=== PATIENT | female | born 1950 | race Hispanic/Latino ===

== ENCOUNTER 2020-08-02 12:43 | Emergency (ER) | payer MEDICARE ==
[2020-08-02] MEDS ORDERED: ALBUTEROL INHALER 90MCG/INH IH ONE (13:03)
[2020-08-02] MEDS ORDERED: ACETAMINOPHEN WITH CODEINE 1 TAB TAB ONE (13:03)
[2020-08-02] MEDS ORDERED: AZITHROMYCIN 250 MG TABLET PO ONE (13:03)
[2020-08-02] MEDS ORDERED: CEFTRIAXONE 1G VIAL ONE (13:03)
[2020-08-02 13:29] LABS: ABG BASE EXCESS -1.7 mmol/L (-2.0-3.0); ABG OXYGEN SATURATION 95.7 % (95.0-99.0); ABG PCO2 27 mmHg (32-45)
[2020-08-02 13:41] LABS: EOSINOPHILS % (AUTO) 0.6 % (0.0-8.0); HEMATOCRIT 41.6 % (36-48); LYMPHOCYTES % (AUTO) 27.3 % (21.0-51.0); MEAN CORPUSCULAR HEMOGLOBIN 29.6 pg (27.0-33.0); MEAN CORPUSCULAR HGB CONC 34.1 g/dL (32.0-36.0); MEAN CORPUSCULAR VOLUME 86.7 fL (79-99); MONOCYTES % (AUTO) 5.7 % (3.0-13.0); NEUTROPHILS % (AUTO) 65.8 % (40.0-77.0); PLATELET COUNT (AUTO) 160 K/uL (130-400); RED CELL DISTRIBUTION WIDTH 14.2 % (11.0-15.5); WHITE BLOOD COUNT (AUTO) 4.9 K/uL (4.8-10.8)
[2020-08-02 13:52] LABS: CREATININE 1.1 mg/dL (0.5-1.5); INR 1.19 (0.85-1.15); POTASSIUM 4.2 mmol/L (3.5-5.1); PROTHROMBIN TIME 12.5 SEC (9.6-11.6)
[2020-08-02 13:56] LABS: ALBUMIN 4.1 g/dL (3.5-5.0); BILIRUBIN,TOTAL 0.8 mg/dL (0.2-1.0); TOTAL PROTEIN, SERUM 8.6 g/dL (6.0-8.3)
[2020-08-02 14:17] LABS: B-TYPE NATRIURETIC PEPTIDE 83 pg/mL (0-100)
== END 2020-08-02 15:10 | disposition home or self-care (01) ==
LOC: EDH 12:43
DX: U07.1 COVID-19 (principal); I10 Essential (primary) hypertension; Z95.0 Presence of cardiac pacemaker
CPT/HCPCS: 36415; 36600; 71045; 80053; 82550; 82803; 83605; 83880; 84145; 84484; 85025; 85610; 85730; 87040 ×2; 87426; 93005; 96365; 99285; J0696

== ENCOUNTER 2020-08-09 10:14 | Inpatient (IN) | payer MEDICARE ==
[~2020-08-09] VITALS: Ht 157.5 cm; Wt 91.2 kg
[2020-08-09 11:28] LABS: BASOPHILS % (AUTO) 0.7 % (0.0-5.0); EOSINOPHILS % (AUTO) 2.1 % (0.0-8.0); HEMATOCRIT 40.7 % (36-48); LYMPHOCYTES % (AUTO) 24.1 % (21.0-51.0); MEAN CORPUSCULAR HGB CONC 34.4 g/dL (32.0-36.0); MEAN CORPUSCULAR VOLUME 87.3 fL (79-99); NEUTROPHILS % (AUTO) 59.4 % (40.0-77.0); PLATELET COUNT (AUTO) 290 K/uL (130-400); RED BLOOD CELL COUNT(AUTO) 4.66 MIL/uL (4.00-5.50); WHITE BLOOD COUNT (AUTO) 5.6 K/uL (4.8-10.8)
[2020-08-09 11:42] LABS: INR 1.21 (0.85-1.15)
[2020-08-09 11:43] LABS: PARTIAL THROMBOPLASTIN TIME 24.2 SEC (26.3-35.5)
[2020-08-09 12:06] LABS: B-TYPE NATRIURETIC PEPTIDE 88 pg/mL (0-100)
[2020-08-09 13:52] LABS: POTASSIUM 3.9 mmol/L (3.5-5.1)
[2020-08-09 13:56] LABS: ALBUMIN 3.4 g/dL (3.5-5.0); BILIRUBIN,TOTAL 0.7 mg/dL (0.2-1.0); TOTAL PROTEIN, SERUM 7.7 g/dL (6.0-8.3)
[2020-08-09] MEDS ORDERED: GLUCAGON 1MG KIT 1 MG ML IM PRN (15:45)
[2020-08-09] MEDS ORDERED: DEXTROSE 50%-WATER 50 ML DISP.SYRIN IV PRN (15:45)
[2020-08-09] MEDS ORDERED: WARFARIN SODIUM 10 MG TABLET PO SCH (16:00)
[2020-08-09] MEDS: INSULIN R PO SS1 SQ SCH ×2 (16:30→21:00)
[2020-08-10] MEDS: INSULIN R PO SS1 SQ SCH ×4 (07:30→21:00)
[2020-08-10 08:02] LABS: BASOPHILS % (AUTO) 0.5 % (0.0-5.0); EOSINOPHILS % (AUTO) 2.7 % (0.0-8.0); HEMATOCRIT 38.2 % (36-48); LYMPHOCYTES % (AUTO) 27.7 % (21.0-51.0); MEAN CORPUSCULAR HEMOGLOBIN 29.6 pg (27.0-33.0); MEAN CORPUSCULAR HGB CONC 33.5 g/dL (32.0-36.0); MEAN CORPUSCULAR VOLUME 88.4 fL (79-99); MONOCYTES % (AUTO) 8.3 % (3.0-13.0); NEUTROPHILS % (AUTO) 54.8 % (40.0-77.0); PLATELET COUNT (AUTO) 295 K/uL (130-400); RED BLOOD CELL COUNT(AUTO) 4.32 MIL/uL (4.00-5.50); RED CELL DISTRIBUTION WIDTH 13.7 % (11.0-15.5); WHITE BLOOD COUNT (AUTO) 5.5 K/uL (4.8-10.8)
[2020-08-10 08:16] LABS: INR 1.27 (0.85-1.15); PROTHROMBIN TIME 13.5 SEC (9.6-11.6)
[2020-08-10 08:18] LABS: PARTIAL THROMBOPLASTIN TIME 27.9 SEC (26.3-35.5)
[2020-08-10 08:40] LABS: CREATININE 1.1 mg/dL (0.5-1.5); POTASSIUM 4.4 mmol/L (3.5-5.1)
[2020-08-10] MEDS ORDERED: WARFARIN SODIUM 10 MG TABLET PO SCH (12:30)
[2020-08-10] MEDS: ENOXAPARIN SODIUM 100 MG/1 ML SQ SCH ×2 (13:17→21:00)
[2020-08-10] MEDS ORDERED: ENOXAPARIN SODIUM 100 MG/1 ML SQ ONE (20:29)
[2020-08-11 04:32] LABS: HEMATOCRIT 36.4 % (36-48); MEAN CORPUSCULAR HEMOGLOBIN 29.5 pg (27.0-33.0); MEAN CORPUSCULAR HGB CONC 33.5 g/dL (32.0-36.0); MEAN CORPUSCULAR VOLUME 87.9 fL (79-99); PLATELET COUNT (AUTO) 283 K/uL (130-400); RED BLOOD CELL COUNT(AUTO) 4.14 MIL/uL (4.00-5.50); RED CELL DISTRIBUTION WIDTH 13.7 % (11.0-15.5); WHITE BLOOD COUNT (AUTO) 6.1 K/uL (4.8-10.8)
[2020-08-11 04:37] LABS: CREATININE 1.1 mg/dL (0.5-1.5); POTASSIUM 3.9 mmol/L (3.5-5.1)
[2020-08-11 04:52] LABS: INR 1.87 (0.85-1.15); PROTHROMBIN TIME 19.3 SEC (9.6-11.6)
[2020-08-11 04:53] LABS: PARTIAL THROMBOPLASTIN TIME 36.5 SEC (26.3-35.5)
[2020-08-11 05:04] LABS: BAND NEUTROPHILS % (MANUAL) 5 % (0-2); EOSINOPHILS % (MANUAL) 2 % (1-6); LYMPHOCYTES % (MANUAL) 33 % (22-44); MAN.DIFF COMMENT-IMPRESSION MANUAL DIFFERENTIAL; MONOCYTES % (MANUAL) 10 % (2-9); PLATELET MORPHOLOGY COMMENT ADEQUATE; REACTIVE LYMPHOCYTES 3 % (0-0); SEGMENTED NEUTROPHILS % 47 % (40-70)
[2020-08-11] MEDS: INSULIN R PO SS1 SQ SCH ×4 (07:30→21:00)
[2020-08-11] MEDS: ENOXAPARIN SODIUM 100 MG/1 ML SQ SCH ×2 (09:00→21:47)
[2020-08-11] MEDS ORDERED: ENOXAPARIN SODIUM 40 MG/0.4 ML SYRINGE SQ ONE (11:33)
[2020-08-11] MEDS ORDERED: WARFARIN SODIUM 10 MG TABLET PO SCH ×2 (16:00)
[2020-08-11 20:20] VITALS: BP 157/89
[2020-08-12 00:30] VITALS: BP 149/81
[2020-08-12] MEDS: INSULIN R PO SS1 SQ SCH ×2 (05:58→11:30)
[2020-08-12 05:59] VITALS: BP 151/74
[2020-08-12 06:02] LABS: BASOPHILS % (AUTO) 0.6 % (0.0-5.0); EOSINOPHILS % (AUTO) 2.9 % (0.0-8.0); HEMATOCRIT 38.7 % (36-48); LYMPHOCYTES % (AUTO) 31.4 % (21.0-51.0); MEAN CORPUSCULAR HEMOGLOBIN 29.2 pg (27.0-33.0); MEAN CORPUSCULAR HGB CONC 33.6 g/dL (32.0-36.0); MONOCYTES % (AUTO) 8.7 % (3.0-13.0); NEUTROPHILS % (AUTO) 46.3 % (40.0-77.0); PLATELET COUNT (AUTO) 310 K/uL (130-400); RED BLOOD CELL COUNT(AUTO) 4.45 MIL/uL (4.00-5.50); RED CELL DISTRIBUTION WIDTH 14.1 % (11.0-15.5); WHITE BLOOD COUNT (AUTO) 6.2 K/uL (4.8-10.8)
[2020-08-12 06:14] LABS: POTASSIUM 4.2 mmol/L (3.5-5.1)
[2020-08-12 06:16] LABS: INR 3.02 (0.85-1.15); PROTHROMBIN TIME 29.8 SEC (9.6-11.6)
[2020-08-12 06:17] LABS: PARTIAL THROMBOPLASTIN TIME 41.6 SEC (26.3-35.5)
[2020-08-12] MEDS ORDERED: LISI40TA9 PO (07:05)
[2020-08-12] MEDS ORDERED: WARF6TAB49 PO (07:05)
[2020-08-12] MEDS ORDERED: METO50TA18 PO (07:05)
[2020-08-12] MEDS ORDERED: LEVO200C2 PO (07:05)
[2020-08-12] MEDS ORDERED: ASPI-1197 PO (07:05)
[2020-08-12] MEDS ORDERED: ASPI-1005 PO (07:05)
[2020-08-12 08:53] VITALS: BP 152/79
[2020-08-12] MEDS ORDERED: ASPIRIN 81MG CHEW TAB PO SCH (09:00)
[2020-08-12] MEDS ORDERED: LISINOPRIL 40 MG TABLET PO SCH (10:58)
[2020-08-12] MEDS ORDERED: METOPROLOL TARTRATE 50 MG TAB PO SCH (10:59)
[2020-08-12 12:05] VITALS: BP 141/79
[2020-08-12] MEDS ORDERED: WARFARIN SODIUM 2 MG TAB PO SCH (16:00)
[2020-08-12] MEDS ORDERED: NON-FORMULARY MEDICATION 1 EACH (Warfarin Sodium 6 MG) PO SCH (18:00)
[2020-08-12] MEDS ORDERED: ATORVASTATIN 20 MG TABLET PO SCH (21:00)
[2020-08-13] MEDS ORDERED: LEVOTHYROXINE 100 MCG TABLET PO SCH (06:30)
[2020-08-13] MEDS ORDERED: NON-FORMULARY MEDICATION 1 EACH (Levothyroxine Sodium (Levothyroxine) 200 MCG) PO SCH (07:30)
[2020-08-13] MEDS ORDERED: ASPIRIN 81MG CHEW TAB PO SCH (09:00)
== END 2020-08-12 15:10 | disposition home or self-care (01) | DRG 64 ==
LOC: EDH 10:14 → EDHIP 15:25 → 2DH 08-11 17:43
PROVIDERS: ADMIT Internal Medicine Nephrology; ATTEND Internal Medicine Nephrology
DX: I63.9 Cerebral infarction, unspecified (principal); U07.1 COVID-19; I10 Essential (primary) hypertension; E78.00 Pure hypercholesterolemia, unspecified; R79.1 Abnormal coagulation profile; Z20.822 Contact with and (suspected) exposure to COVID-19; R47.01 Aphasia; E78.5 Hyperlipidemia, unspecified; E11.9 Type 2 diabetes mellitus without complications; Z95.2 Presence of prosthetic heart valve; Z79.01 Long term (current) use of anticoagulants; Z87.01 Personal history of pneumonia (recurrent); Z83.3 Family history of diabetes mellitus; Z82.49 Family history of ischemic heart disease and other diseases of the circulatory system
CPT/HCPCS: 36415; 70450; 71045; 80048; 80053; 82140; 82550; 82948; 83605; 83880; 84145; 84484; 85025; 85610; 85730; 87426; 93005; 93880; 99291; G0378; J1650; U0003

== ENCOUNTER → 2023-11-02 | Outpatient (CLI) | payer MEDICARE ==
[~2023-11-02] MED LIST: ASPI-1005 PO; ASPI-1197 PO; LEVO200C2 PO; LISI40TA9 PO; METO50TA18 PO; WARF6TAB49 PO
== END | disposition home or self-care (01) ==
LOC: RAH 13:03
PROVIDERS: ATTEND Family Medicine
DX: F03.90 Unspecified dementia, unspecified severity, without behavioral disturbance, psychotic disturbance, mood disturbance, and anxiety (principal)
CPT/HCPCS: 70450